=== PATIENT | male | born 1980 | race Hispanic/Latino ===

== ENCOUNTER 2022-07-02 17:22 | Emergency (ER) | payer OTHER ==
[~2022-07-02] VITALS: Ht 172.7 cm; Wt 163.2 kg
[2022-07-02] MEDS ORDERED: TRIDERM0.1 % TD (17:43)
[2022-07-02] MEDS ORDERED: KEFLEX500 MG PO (17:43)
[2022-07-02 17:48] VITALS: BP 128/77
[2022-07-02] MEDS ORDERED: MAXITROL 0.1 %1 SUS OU (17:50)
[2022-07-02 17:57] VITALS: BP 128/77
== END 2022-07-02 18:10 | disposition home or self-care (01) | DRG 605 ==
LOC: ED 17:22
DX: S41.111A Laceration without foreign body of right upper arm, initial encounter (principal); L24.4 Irritant contact dermatitis due to drugs in contact with skin; H10.9 Unspecified conjunctivitis; I10 Essential (primary) hypertension; T49.0X5A Adverse effect of local antifungal, anti-infective and anti-inflammatory drugs, initial encounter; W18.30XA Fall on same level, unspecified, initial encounter

== ENCOUNTER 2022-07-07 10:35 | Emergency (ER) | payer OTHER ==
[~2022-07-07] VITALS: Ht 172.7 cm; Wt 161.0 kg
[~2022-07-07 10:35] MED LIST: KEFLEX500 MG PO; MAXITROL 0.1 %1 SUS OU; TRIDERM0.1 % TD
[2022-07-07] MEDS ORDERED: OFLOXACIN0.3 % OU (11:37)
[2022-07-07] MEDS ORDERED: DOXY-CAPS100 MG PO (11:37)
[2022-07-07] MEDS ORDERED: DEXAMETHASON4 MG PO (11:37)
[2022-07-07] MEDS ORDERED: ALL DAY10 MG PO (11:54)
[2022-07-07 11:56] VITALS: BP 149/99
== END 2022-07-07 12:05 | disposition home or self-care (01) | DRG 916 ==
LOC: ED 10:35
DX: T78.40XA Allergy, unspecified, initial encounter (principal); H10.9 Unspecified conjunctivitis; I10 Essential (primary) hypertension; X58.XXXA Exposure to other specified factors, initial encounter

== ENCOUNTER 2022-07-22 18:17 | Inpatient (IN) | payer OTHER ==
[~2022-07-22] VITALS: Ht 172.7 cm; Wt 164.0 kg
[~2022-07-22 18:17] MED LIST changes: +ALL DAY10 MG PO; +DEXAMETHASON4 MG PO; +DOXY-CAPS100 MG PO; +OFLOXACIN0.3 % OU
--- NOTE | 2022-07-22 19:00 | NUR ---
PT AMBULATED TO ER ROOM 4
[2022-07-22 19:36] LABS: HEMATOCRIT 45.2 % (39.0-50.0); HEMOGLOBIN 14.8 g/dl (14.0-18.0); IMMATURE GRANULOCYTES 0.3 % (0.0-5.0); MEAN CORPUSCULAR HGB 30.8 pG CALC (26.0-32.0); MEAN CORPUSCULAR HGB CONC 32.7 g/dL CAL (32.0-36.0); PLATELET COUNT 300 thou/uL (130-400); RED BLOOD COUNT 4.81 mill/uL (4.70-6.10); RED CELL DISTRI WIDTH 13.3 % (11.5-15.5)
[2022-07-22 19:57] LABS: ALKALINE PHOSPHATASE 57 u/l (38-126); ANION GAP 12 (6-22 (CALC)); BILIRUBIN, TOTAL 1.7 mg/dL (0.2-1.3); BUN 14 mg/dL (9-20); BUN/CREATININE RATIO 22 (12-20 (CALC)); CARBON DIOXIDE 27 mmol/l (22-30); CHLORIDE 103 mmol/l (95-108); CREATININE 0.6 mg/dL (0.7-1.3); GFR FOR AFR.AMER. > 60 ML/MIN (>=60 (CALC)); GFR OTHER RACES > 60 ML/MIN (>=60 (CALC)); POTASSIUM 4.3 mmol/l (3.5-5.1); SGOT/AST 23 u/l (17-59); SODIUM 137 mmol/l (137-146); TOTAL PROTEIN 7.1 g/dL (6.3-8.2)
[2022-07-22 19:59] LABS: BAND 14 % (0-8)
[2022-07-22 20:00] LABS: MANUAL DIFFERENTIAL YES
--- NOTE | 2022-07-22 20:00 | NUR ---
PT SITTING IN AWAITING RESULTS AT THIS TIME. CALL LIGHT WITHIN REACH.
--- NOTE | 2022-07-22 21:04 | NUR ---
PT LAYING IN BED, CC RIGHT LEG PAIN AND REDNESS, PT STATES THAT THIS MORNING HE WOKE UP WITH PAIN AND REDNESS ON THE LOWER PORTION OF HIS RIGHT LEG, MD NOTIFIED CALL LIGHT WITHIN REACH
--- NOTE | 2022-07-22 22:00 | NUR ---
PT SITTING IN AT THIS TIME AWAITING ADMISSION TO MS. CALL LIGHT WITHIN REACH.
--- NOTE | 2022-07-22 23:00 | NUR ---
REPORT GIVEN TO GOMEZ DOW AT THIS TIME.
--- NOTE | 2022-07-22 23:18 | NUR ---
Admission Note Report Given to: GOMEZ DOW Transported by: X Wheelchair Stretcher Transported with: X Nurse Transporter X Patent IV O2 Appliance Sales Associate Location: ICU X [facility]
[2022-07-22 23:24] VITALS: BP 143/86
--- NOTE | 2022-07-23 01:46 | NUR ---
RECEIVED REPORT FROM NURSE DEMETRIUS, PATIENT TRANSPORTED VIA WHEEL CHAIR, PATIENT ARRIVE DTO FLOOR AT 2320, PATIENT ALERT ORIENTED, IV SITED ON LAC G 20 PATENT FLUSHES WELL, DENOIES PAIN AT THIS TIME. ACTIVE BOWEL SOUNDS, CLEAR LUNG SOUNDS EDEMA AND MODERATELY RED ON RT LEG, ADMISSION ASSESSMENT COMLETED, PATIENT ORIENTED TO ROOM AND CALL LIGT SYSTEM, CALL LIGHT IN REACH.
[2022-07-23 03:27] VITALS: BP 134/68
--- NOTE | 2022-07-23 03:56 | NUR ---
PATIENT RESTING IN BED, ASKING ABOUT THE ANTINIOTIC MADE AWARE ABOUT THE TIME OF THE MEDICATION, PATIENT NOT IN DISTRESS CALL LIGHT IN REACH.
[2022-07-23 06:27] VITALS: BP 147/94
--- NOTE | 2022-07-23 08:15 | NUR ---
RECEIVED REPORT FROM NIGHTSHIFT NURSE. PT NOTED LAYING SEMI FOWLERS IN BED SLEEPING AT THIS TIME. NO S/S OF DISTRESS. CALL LIGHT WITHIN REACH AND SAFETY PRECAUTIONS IN PLACE.
[2022-07-23 08:50] LABS: HEMATOCRIT 46.4 % (39.0-50.0); HEMOGLOBIN 15.2 g/dl (14.0-18.0); IMMATURE GRANULOCYTES 0.6 % (0.0-5.0); MEAN CELL VOLUME 95.1 fL CALC (80.0-100.0); MEAN CORPUSCULAR HGB 31.1 pG CALC (26.0-32.0); MEAN CORPUSCULAR HGB CONC 32.8 g/dL CAL (32.0-36.0); PLATELET COUNT 326 thou/uL (130-400); RED BLOOD COUNT 4.88 mill/uL (4.70-6.10); RED CELL DISTRI WIDTH 13.4 % (11.5-15.5)
[2022-07-23 08:53] LABS: MANUAL DIFFERENTIAL YES
[2022-07-23 08:58] LABS: ALBUMIN 4.1 g/dL (3.2-5.0); ALKALINE PHOSPHATASE 83 u/l (38-126); ANION GAP 11 (6-22 (CALC)); BILIRUBIN, TOTAL 1.3 mg/dL (0.2-1.3); BUN 16 mg/dL (9-20); BUN/CREATININE RATIO 26 (12-20 (CALC)); CARBON DIOXIDE 32 mmol/l (22-30); CHLORIDE 101 mmol/l (95-108); CREATININE 0.6 mg/dL (0.7-1.3); GFR FOR AFR.AMER. > 60 ML/MIN (>=60 (CALC)); GFR OTHER RACES > 60 ML/MIN (>=60 (CALC)); POTASSIUM 4.4 mmol/l (3.5-5.1); SGOT/AST 25 u/l (17-59); SODIUM 139 mmol/l (137-146); TOTAL PROTEIN 7.3 g/dL (6.3-8.2)
--- NOTE | 2022-07-23 09:21 | NUR ---
CRITICAL CALLED FROM LAB. WBC 36.6, NOTIFIED ANRP BRANT LEE. NO NEW ORDERS AT THIS TIME.
[2022-07-23 11:33] LABS: BAND 0 % (0-8); PLATELET ESTIMATE NORMAL
--- NOTE | 2022-07-23 12:00 | NUR ---
PT SITTING UP IN BED EATING LUNCH. DENIES ANY PAIN AT THIS TIME. PT EDUCATED BY ON PLAN OF CARE IMPLEMENTED FOR STAY. PT INDICATED UNDERSTANDING. CALL LIGHT WITHIN REACH AND SAFETY PRECAUTIONS IN PLACE.
--- NOTE | 2022-07-23 14:11 | NUR ---
BOOKED AN INFECTIOUS DISEASE CONSULT WITH DR MILLER VIA THE [facility] AT 1300 HRS.
--- NOTE | 2022-07-23 16:00 | NUR ---
PT LAYING IN BED WATCHING TV, ALERT AND ORIENTED X 3. PT HAS NO C/O PAIN AT THIS TIME. NO CHANGE IN PT STATUS. CALL LIGHT WITHIN REACH. WILL CONTINUE TO MONITOR PT.
[2022-07-23 16:28] VITALS: BP 135/73
--- NOTE | 2022-07-23 17:11 | NUR ---
S: DERIK DINH is a 42 M who presents with cellulitis of right leg. He has a history of HTN. All medications in patient's chart were reviewed. O: VS: BP 135/73, P 89, RR 19, T 97.9 W 164 kg, HT 68 in, Scr=0.6, CrCl= 185.8 ml/min A: Blood culture is pending. P: Vancomycin ordered for pharmacy to dose. Start Vancomycin 1500 mg IV Q8H. Vancomycin trough is drawn before the 4th dose on 07/24/22@1330. Vancomycin goal trough is between 10-15 mcg/ml. Pharmacy will follow and or advise on antibiotics use as needed.
--- NOTE | 2022-07-23 20:00 | NUR ---
RECEIVED REPORT FROM NURSE JAMAL, PATIENT RESTING IN BED, TALKING ON THE PHONE, PATIENT ALERT ORIENTED AMBULATORY, IV ON LAC G 20 SALINE LOCK PATENT FLUSHES WELL, PATIENT SLOVAK SPEAKING ONLY, REDNESS NOTED ON RT LEG EDEMA NOTED, SKIN INTACT CALL LIGHT IN REACH.
--- NOTE | 2022-07-23 20:30 | NUR ---
PATIENT TALKING TO INFECTIOUS DSE MD AT THIS TIME.
--- NOTE | 2022-07-23 21:00 | NUR ---
BS 203, RESIDENTIAL TREATMENT SPECIALIST MADE AWARE STARTED ON SLIDING SCLE.
--- NOTE | 2022-07-24 00:55 | NUR ---
VANCOMYCIN STILL INFUSING IV SITE APPEARS HEALTHY, NOT IN DISTRESS CALL LIGHT IN REACH.
[2022-07-24 03:57] VITALS: BP 133/87
--- NOTE | 2022-07-24 04:21 | NUR ---
PATIENT STATED WAS SWEATY, BLOOD GLUCOSE OBTAINED 111, ROOM THERMOSTAT SET TO COOLER TEMP.CALL LIGHT IN REACH.
[2022-07-24 05:30] LABS: URINE BILIRUBIN - DIPSTICK NEGATIVE (NEGATIVE); URINE BLOOD DIPSTICK NEGATIVE (NEGATIVE); URINE CLARITY CLEAR; URINE COLOR YELLOW; URINE GLUCOSE - DIPSTICK NEGATIVE (NEGATIVE); URINE KETONE NEGATIVE (NEGATIVE); URINE LEUK ESTERASE NEGATIVE (Negative); URINE NITRITE - DIPSTICK NEGATIVE (Negative); URINE PH 5.5 (4.5-8.0); URINE PROTEIN - DIPSTICK NEGATIVE (NEG-TRACE); URINE SPECIFIC GRAVITY 1.025
[2022-07-24 05:34] LABS: HEMATOCRIT 44.3 % (39.0-50.0); HEMOGLOBIN 14.3 g/dl (14.0-18.0); MEAN CELL VOLUME 95.5 fL CALC (80.0-100.0); MEAN CORPUSCULAR HGB 30.8 pG CALC (26.0-32.0); MEAN CORPUSCULAR HGB CONC 32.3 g/dL CAL (32.0-36.0); RED BLOOD COUNT 4.64 mill/uL (4.70-6.10); RED CELL DISTRI WIDTH 13.6 % (11.5-15.5)
[2022-07-24 05:56] LABS: ALBUMIN 3.7 g/dL (3.2-5.0); ALKALINE PHOSPHATASE 74 u/l (38-126); ANION GAP 10 (6-22 (CALC)); BUN 22 mg/dL (9-20); BUN/CREATININE RATIO 28 (12-20 (CALC)); CARBON DIOXIDE 30 mmol/l (22-30); CHLORIDE 102 mmol/l (95-108); CREATININE 0.8 mg/dL (0.7-1.3); GFR FOR AFR.AMER. > 60 ML/MIN (>=60 (CALC)); GFR OTHER RACES > 60 ML/MIN (>=60 (CALC)); POTASSIUM 3.9 mmol/l (3.5-5.1); SGOT/AST 24 u/l (17-59); SODIUM 138 mmol/l (137-146); TOTAL PROTEIN 6.8 g/dL (6.3-8.2)
[2022-07-24 06:03] LABS: BILIRUBIN, TOTAL 0.6 mg/dL (0.2-1.3)
--- NOTE | 2022-07-24 07:19 | NUR ---
PT RESTING IN HIGH FOWLERS POSITION.A/OX3 ASSESSMENT COMPLETED. HEART RHYTHM NORMAL. RESPIRATIONS ON ROOM AIR. IV SITE NOTED PT STATED NOTED LEAKING. NIGHT RN NURSE AWARE. POSSIBLE NEED OF REPOSTION OR CHANGE. PT RIGHT LEG NOTED OF REDNESS AND SWOLLEN. ALL SAFETY PRECAUTIONS IN PLACE WITH CALL LIGHT INREACH.
[2022-07-24 10:02] VITALS: BP 154/84
--- NOTE | 2022-07-24 12:54 | NUR ---
PT RESTING IN HIGH FOWLERS POSITION PT DENIES ADDITIONAL NEEDS AT THE TIME.
--- NOTE | 2022-07-24 16:17 | NUR ---
VANCO ABX CURRENTLY INFUSING. TO PROVIDE WITH NEXT ABX.
--- NOTE | 2022-07-24 16:18 | NUR ---
S: DERIK DINH is a 42 M who presents with cellulitis of right leg. O: VS: BP 154/84, P 87, RR 16, T 97.3 Scr=0.8, CrCl= 139.3 ml/min Vancomycin trough 07/24@1330 = 15 A: Blood culture is pending. Vancomycin trough is at upper end of therapeutic range. Decrease in dose warranted. P: Patient is on vancomycin 1500 mg IV q8h. Vancomycin ordered for pharmacy to dose. Decrease Vancomycin to 1250 mg IV Q8H. Vancomycin trough is drawn before the 4th dose on 07/25/22@2130. Vancomycin goal trough is between 10-15 mcg/ml. Pharmacy will follow and or advise on antibiotics use as needed.
[2022-07-24 16:32] VITALS: BP 129/79
[2022-07-24 19:00] VITALS: BP 153/88
--- NOTE | 2022-07-24 19:45 | NUR ---
RECEIVED REPORT FROM DAYSRIFT NURSE. PT IS SITTING UP IN BED. ID MD CALLED TOOK PLACE AND TRANSLATION WAS NEEDED. PT ACKNOWLEGED RECOMENDATIONS FROM ID AND WILL FOLLOW UP. PT IS IN NO PAIN AT THIS TIME. CALL LIGHT WITHIN REACH AND SAFETY PRCAUTIONS TAKEN PLACE.
[2022-07-24 19:55] VITALS: BP 153/88
[2022-07-24 21:43] VITALS: BP 159/85
--- NOTE | 2022-07-25 00:12 | NUR ---
PT IS IN BED SLEEPING. IV MEDS RUNNING. PATIENT SHOWS NO SIGNS OF PAIN. PTS CALL LIGHT WITHHIN REACH AND SAFETY PRECAUTIONS IN PLACE.
[2022-07-25 04:00] VITALS: BP 117/63
--- NOTE | 2022-07-25 04:28 | NUR ---
PT IS IN BED SLEEPING. NO COMPLAINTS OF PAIN. CALL LIGHT WITHIN REACH AND SAFETY PRECAUTIONS IN PLACE.
[2022-07-25 04:30] VITALS: BP 117/63
[2022-07-25 05:51] LABS: BASO% 0.2 % (0-3); EOS% 0.7 % (0-8); HEMATOCRIT 43.1 % (39.0-50.0); HEMOGLOBIN 13.8 g/dl (14.0-18.0); IMMATURE GRANULOCYTES 0.5 % (0.0-5.0); LYMPH% 15.8 % (15-41); MEAN CELL VOLUME 95.6 fL CALC (80.0-100.0); MEAN CORPUSCULAR HGB 30.6 pG CALC (26.0-32.0); MONO% 6.2 % (2-13); NEUT# 13.03 thou/uL (1.82-7.42); NEUT% 76.6 % (42-76); RED BLOOD COUNT 4.51 mill/uL (4.70-6.10); RED CELL DISTRI WIDTH 13.4 % (11.5-15.5)
[2022-07-25 06:02] LABS: ALBUMIN 3.5 g/dL (3.2-5.0); ALKALINE PHOSPHATASE 69 u/l (38-126); ANION GAP 8 (6-22 (CALC)); BILIRUBIN, TOTAL 0.8 mg/dL (0.2-1.3); BUN 19 mg/dL (9-20); BUN/CREATININE RATIO 25 (12-20 (CALC)); CARBON DIOXIDE 30 mmol/l (22-30); CHLORIDE 104 mmol/l (95-108); CREATININE 0.8 mg/dL (0.7-1.3); GFR FOR AFR.AMER. > 60 ML/MIN (>=60 (CALC)); GFR OTHER RACES > 60 ML/MIN (>=60 (CALC)); POTASSIUM 3.7 mmol/l (3.5-5.1); SGOT/AST 22 u/l (17-59); SODIUM 138 mmol/l (137-146); TOTAL PROTEIN 6.4 g/dL (6.3-8.2)
[2022-07-25 07:30] VITALS: BP 145/72
[2022-07-25] MEDS ORDERED: LEVOFLOXACIN500MG PO (08:30)
[2022-07-25] MEDS ORDERED: DOXY-CAPS100 MG PO (08:30)
--- NOTE | 2022-07-25 08:58 | NUR ---
PT RESTING IN HIGH FOWLERS POSITION. A/OX3 DC TODAY PER PROVIDER 1X DOSE LASIX PROVIDED PER EMAR. IV SITE FLUSHED TO RAC. PT STATED WHEN DC EDUCATED PT PROVIDER NEED OF DC ORDERS AND PAPER WORK TO BE SIGNED. PT DENIES ADDITIONAL NEEDS AT THE TIME.
--- NOTE | 2022-07-25 09:48 | NUR ---
Discharge instructions given. Patient verbalizes understanding of same. Discharged in stable condition via Wheelchair to Home with staff. All belongings sent with pt. IV REMOVED NO TELE.
== END 2022-07-25 11:30 | disposition home or self-care (01) | DRG 603 ==
LOC: ED 18:17 → MS2 21:57
PROVIDERS: Emergency Medicine; Internal Medicine; Nurse Practitioner Family; Student in an Organized Health Care Education/Training Program; ADMIT Internal Medicine; ATTEND Internal Medicine
DX: L03.115 Cellulitis of right lower limb (principal); Z68.45 Body mass index [BMI] 70 or greater, adult; I10 Essential (primary) hypertension; E11.9 Type 2 diabetes mellitus without complications; I87.2 Venous insufficiency (chronic) (peripheral); E66.9 Obesity, unspecified; F17.200 Nicotine dependence, unspecified, uncomplicated; T38.3X6A Underdosing of insulin and oral hypoglycemic [antidiabetic] drugs, initial encounter; Z91.128 Patient's intentional underdosing of medication regimen for other reason; Z79.84 Long term (current) use of oral hypoglycemic drugs; Z88.1 Allergy status to other antibiotic agents; Z88.0 Allergy status to penicillin
CPT/HCPCS: J3370; Q3014; Q9967

== ENCOUNTER 2022-07-29 22:03 | Inpatient (IN) | payer OTHER ==
[~2022-07-29] VITALS: Ht 175.3 cm; Wt 159.2 kg
[2022-07-29] VITALS (7 sets, daily range): BP systolic 100–203; BP diastolic 50–179
[~2022-07-29 22:03] MED LIST changes: +LEVOFLOXACIN500MG PO
--- NOTE | 2022-07-29 22:10 | NUR ---
PT TO ER BED 5 FOR TRIAGE AT THIS TIME WITH AN EVEN AND STEADY GAIT.
[2022-07-29] MEDS ORDERED: METFORMIN500 M2 PO (22:22)
[2022-07-29] MEDS ORDERED: ENALAPRIL20 MG PO (22:23)
[2022-07-29 22:58] LABS: BASO% 0.2 % (0-3); EOS% 0.7 % (0-8); HEMATOCRIT 45.2 % (39.0-50.0); HEMOGLOBIN 14.6 g/dl (14.0-18.0); IMMATURE GRANULOCYTES 0.4 % (0.0-5.0); LYMPH% 14.1 % (15-41); MEAN CORPUSCULAR HGB 30.4 pG CALC (26.0-32.0); MEAN CORPUSCULAR HGB CONC 32.3 g/dL CAL (32.0-36.0); MONO% 4.7 % (2-13); NEUT# 17.77 thou/uL (1.82-7.42); NEUT% 79.9 % (42-76); RED BLOOD COUNT 4.81 mill/uL (4.70-6.10); RED CELL DISTRI WIDTH 12.9 % (11.5-15.5)
[2022-07-29 23:10] LABS: ALBUMIN 4.2 g/dL (3.2-5.0); ALKALINE PHOSPHATASE 100 u/l (38-126); ANION GAP 12 (6-22 (CALC)); BILIRUBIN, TOTAL 0.8 mg/dL (0.2-1.3); CARBON DIOXIDE 27 mmol/l (22-30); CHLORIDE 101 mmol/l (95-108); POTASSIUM 4.4 mmol/l (3.5-5.1); SGOT/AST 27 u/l (17-59); SODIUM 135 mmol/l (137-146)
--- NOTE | 2022-07-29 23:12 | NUR ---
PT SITTING IN RM AWAITING RESULTS AT THIS TIME. CALL LIGHT WITHIN REACH AND PT HAS NO NEEDS OR CONCERNS.
[2022-07-29 23:15] LABS: BUN 16 mg/dL (9-20); BUN/CREATININE RATIO 19 (12-20 (CALC)); CREATININE 0.9 mg/dL (0.7-1.3); GFR FOR AFR.AMER. > 60 ML/MIN (>=60 (CALC)); GFR OTHER RACES > 60 ML/MIN (>=60 (CALC))
[2022-07-29 23:18] LABS: TOTAL PROTEIN 8.1 g/dL (6.3-8.2)
[2022-07-30] VITALS (20 sets, daily range): BP systolic 104–152; BP diastolic 53–89
--- NOTE | 2022-07-30 00:15 | NUR ---
PT SITTING IN RM AWAITING RESULTS AT THIS TIME. CALL LIGHT WITHIN REACH. PT HAS NO NEEDS OR CONCERNS AT THIS TIME. VSS.
--- NOTE | 2022-07-30 01:20 | NUR ---
PT SITTING IN RM AWAITING ADMISSION AT THIS TIME. CALL LIGHT WITHIN REACH AND PT HAS NO NEEDS OR CONCERNS AT THIS TIME.
--- NOTE | 2022-07-30 02:20 | NUR ---
PT LAYING IN RM AWAITING ADMISSION AT THIS TIME. CALL LIGHT WITHIN REACH.
--- NOTE | 2022-07-30 02:45 | NUR ---
ATTEMPTED TO CALL REPORT TO ICU AND THE NURSE NOTIFIED ME THAT THEY ARE DOING A TRANSFER AND ARE UNABLE TO TAKE THE PT CURRENTLY. CHARGE NURSE MADE AWARE AND PT UPDATED AT THIS TIME ON POC. CALL LIGHT WITHIN REACH AND PT HAS NO NEEDS OR CONCERNS.
--- NOTE | 2022-07-30 03:45 | NUR ---
PT SITTING IN RM AWAITING ADMISSION AT THIS TIME. CALL LIGHT WITHIN REACH.
--- NOTE | 2022-07-30 04:30 | NUR ---
PT RESTING IN RM AWAITING ADMISSION AT THIS TIME. CALL LIGHT WITHIN REACH AND PT HAS NO NEEDS OR CONCERNS AT THIS TIME.
--- NOTE | 2022-07-30 05:30 | NUR ---
PT SLEEPING IN RM AWAITING ADMISSION AT THIS TIME. CALL LIGHT WITHIN REACH AND PT HAS NO NEEDS OR CONCERNS.
--- NOTE | 2022-07-30 06:00 | NUR ---
Admission Note Report Given to: MEIR DOW Transported by: X Wheelchair Stretcher Transported with: X Nurse Transporter X Patent IV X O2 X Ornamental Iron Worker Location: ICU X [facility]
--- NOTE | 2022-07-30 06:15 | NUR ---
PT ADMITED TO MED SURG FROM ER VIA WHEEL CHAIR PT ALERT AND ORIENTED AND MALAWIAN SPEAKING ONLY, ADMISSION ASSESSMENT INFORMTAION OBTAINED VIA IRIS (REGISTRATION) ACTING SKI TOPPER. LUNGS CLEAR NO SOB NOTED, O2 AT 3L PER ER REPORT PT SATS DROP WHEN SLEEPING, SKIN WARM DRY AND INTACT. RLE REDDENED AND 2-3+ PITTING EDEMA, R PEDAL W/ DOPPLER, LPPP AND STRONG. ENCOURAGED TO KEEP RLE ELEVATED FOR COMFORT, MEDICATED IN ER FOR PAIN, STATES THAT HE CAME IN BECAUSE HE WAS HERE INPATIENT LAST WEEK, AND WAS SENT HOME ON ABT, HE WAS TAKING THEM PRESCRIBED AND FELT THE SITUATION WAS GETTING WORSE NOT BETTER, AND PAIN WAS UNTOLERABLE. PT ORIENTED TO ROOM AND UNIT, CALL SANDOVAL WITHIN REACH, BOTH SIDE RAIS UP PER PT REQUEST, ENCOUAGED TO CALL FOR ANY ASSISTANCE NEEDED. CALL SANDOVAL WITHIN REACH AND PT ABLE TO DEMONSTRATE USAGE W/O INCIDENT. WILL CONTINUE TO MONITOR
--- NOTE | 2022-07-30 06:28 | NUR ---
PT ADMITED TO MED SURG FROM ER VIA WHEEL CHAIR PT ALERT AND ORIENTED AND LIBERIAN SPEAKING ONLY, ADMISSION ASSESSMENT INFORMTAION OBTAINED VIA IRIS (REGISTRATION) ACTING MANAGER OF DRILLING. LUNGS CLEAR NO SOB NOTED, O2 AT 3L PER ER REPORT PT SATS DROP WHEN SLEEPING, SKIN WARM DRY AND INTACT. RLE REDDENED AND 2-3+ PITTING EDEMA, R PEDAL W/ DOPPLER, LPPP AND STRONG. ENCOURAGED TO KEEP RLE ELEVATED FOR COMFORT, MEDICATED IN ER FOR PAIN, STATES THAT HE CAME IN BECAUSE HE WAS HERE INPATIENT LAST WEEK, AND WAS SENT HOME ON ABT, HE WAS TAKING THEM PRESCRIBED AND FELT THE SITUATION WAS GETTING WORSE NOT BETTER, AND PAIN WAS UNTOLERABLE. PT ORIENTED TO ROOM AND UNIT, CALL SANDOVAL WITHIN REACH, BOTH SIDE RAIS UP PER PT REQUEST, ENCOUAGED TO CALL FOR ANY ASSISTANCE NEEDED. CALL SANDOVAL WITHIN REACH AND PT ABLE TO DEMONSTRATE USAGE W/O INCIDENT. WILL CONTINUE TO MONITOR
--- NOTE | 2022-07-30 07:00 | NUR ---
RECEIVE REPORT FROM MEIR DOW.
--- NOTE | 2022-07-30 07:01 | NUR ---
REPORT GIVEN TO ONCOMING NURSE FOR DAY SHIFT HEMA DOW.
--- NOTE | 2022-07-30 08:00 | NUR ---
ALERT AND ORIENTED PATIENT X3. IT IS OBSERVED RESTING IN THE BED. PATIENT CONNECTED TO TELE MONITOR. SINUS RHYTHM AT THE TIME OF THIS NOTE. PATIENT REFERS NO PAIN OR DISCOMFORT AT THIS TIME. THE PATIENT IS EDUCATED AND ORIENTED ABOUT THE NURSING PLAN FOR TODAY AND MEDICATIONS. PATIENT REFERS TO UNDERSTAND. SAFETY AND FALL PRECAUTIONS IN PLACE. CALL LIGHT WITHIN IN REACH.
--- NOTE | 2022-07-30 12:00 | NUR ---
PATIENT STABLE AT THE TIME OF THIS NOTE. IT IS OBSERVED RESTING IN THE BED. PATIENT CONNECTED TO TELE MONITOR. SINUS RHYTHM AT THE TIME OF THIS NOTE. PATIENT REFERS NO PAIN OR DISCOMFORT. THE PATIENT IS EDUCATED AND ORIENTED ABOUT THE NURSING PLAN FOR TODAY AND MEDICATIONS. PATIENT REFERS TO UNDERSTAND.
--- NOTE | 2022-07-30 12:51 | NUR ---
S: DERIK DINH is a 42 M who presents with lower extremity injury and cellulitis of right leg. He has a history of hypertension, diabetes, cellulitis. All medications in patient's chart were reviewed. O: VS: BP 137/67mmHg, P 98BPM, RR 18BPM,T 99.4F W 159.2kg, HT 69in, Scr=0.9mg/dl,CrCl= 160.5ml/min A: Blood culture is pending. P: Patient is on aztreonam 2gm IV Q8H. Vancomycin ordered for pharmacy to dose. Start Vancomycin 1,250mg IV Q8H. Vancomycin trough is drawn before the 4th dose on 07/31/2022 @1030. Vancomycin goal trough is between 10-15 mcg/ml. Pharmacy will follow and or advise on antibiotics use as needed.
--- NOTE | 2022-07-30 16:34 | NUR ---
PATIENT RESTING STABLE AT THIS TIME. SAFETY AND FALL PRECAUTIONS IN PLACE. CALL LIGHT WITHIN IN REACH.
--- NOTE | 2022-07-30 20:06 | NUR ---
BEDSIDE REPORT RECEIVED FROM OFF GOING NURSE. PATIENT AWAKE IN BED. NO CONCERNS VOICED AT THIS TIME. CALL LIGHT WITHIN REACH.
[2022-07-31] VITALS (9 sets, daily range): BP systolic 97–121; BP diastolic 47–80
--- NOTE | 2022-07-31 02:02 | NUR ---
PATIENT RESTING QUIETLY IN BED. MEDICATED FOR PAIN TO RIGHT LOWER EXTREMITY. RLE ELEVATED ON PILLOW. CALL LIGHT WITHIN REACH.
[2022-07-31 05:47] LABS: HEMATOCRIT 41.4 % (39.0-50.0); MEAN CELL VOLUME 96.7 fL CALC (80.0-100.0); MEAN CORPUSCULAR HGB 30.4 pG CALC (26.0-32.0); MEAN CORPUSCULAR HGB CONC 31.4 g/dL CAL (32.0-36.0); RED BLOOD COUNT 4.28 mill/uL (4.70-6.10)
[2022-07-31 05:59] LABS: ALBUMIN 3.6 g/dL (3.2-5.0); ALKALINE PHOSPHATASE 86 u/l (38-126); ANION GAP 10 (6-22 (CALC)); BILIRUBIN, TOTAL 0.7 mg/dL (0.2-1.3); BUN 13 mg/dL (9-20); BUN/CREATININE RATIO 17 (12-20 (CALC)); CARBON DIOXIDE 29 mmol/l (22-30); CHLORIDE 102 mmol/l (95-108); CREATININE 0.8 mg/dL (0.7-1.3); GFR FOR AFR.AMER. > 60 ML/MIN (>=60 (CALC)); GFR OTHER RACES > 60 ML/MIN (>=60 (CALC)); MAGNESIUM 2.3 mg/dL (1.6-2.3); POTASSIUM 4.3 mmol/l (3.5-5.1); SGOT/AST 22 u/l (17-59); SODIUM 136 mmol/l (137-146); TOTAL PROTEIN 7.2 g/dL (6.3-8.2)
--- NOTE | 2022-07-31 06:50 | NUR ---
PATIENT UP TO RESTROOM IN ROOM. WALKS INDEPENDENTLY AND USES WALKER AT TIMES. ASSISTED BACK TO BED. CALL LIGHT WITHIN REACH.
--- NOTE | 2022-07-31 07:40 | NUR ---
RECEIVE REPORT FROM KATHLEEN DOW.
--- NOTE | 2022-07-31 08:00 | NUR ---
ALERT AND ORIENTED PATIENT X3. IT IS OBSERVED RESTING IN THE BED. DAUGHTER AT BED SIDE PATIENT CONNECTED TO TELE MONITOR. SINUS RHYTHM AT THE TIME OF THIS NOTE. PATIENT REFERS NO PAIN OR DISCOMFORT AT THIS TIME. THE PATIENT IS EDUCATED AND ORIENTED ABOUT THE NURSING PLAN FOR TODAY AND MEDICATIONS. PATIENT REFERS TO UNDERSTAND. SAFETY AND FALL PRECAUTIONS IN PLACE. CALL LIGHT WITHIN IN REACH.
--- NOTE | 2022-07-31 13:50 | NUR ---
S: DERIK DINH is a 42 M who presents with lower extremity injury and cellulitis of right leg. He has a history of hypertension, diabetes, cellulitis. All medications in patient's chart were reviewed. O: VS: BP 121/76 mmHg, P 79 beats/min, RR 19 bpm, T 97.8F Wt 159.2kg, HT 69in, Scr=0.8mg/dl,CrCl ~ 181ml/min A:Blood culture is pending. Vanco trough is 12 on 07/31/22. P: Patient is also receiving aztreonam 2gm IV Q8H. Continue Vancomycin 1,250mg IV Q8H. Next vancomycin trough is drawn before the 4th dose on 08/02/2022 @1030. Vancomycin goal trough is between 10-15 mcg/ml. Pharmacy will continue to follow and or advise on antibiotics use as needed.
--- NOTE | 2022-07-31 16:13 | NUR ---
Patient stable resting in bed.
--- NOTE | 2022-07-31 19:27 | NUR ---
BEDSIDE REPORT RECEIVED FROM OFF GOING NURSE. PATIENT IN BED AWAKE. RIGHT LOWER EXTREMITY SWOLLEN AND REDDENED. RLE ELEVATED AT THIS TIME. PATIENT DENIES PAIN OR DISCOMFORT. CALL LIGHT WITHIN REACH.
--- NOTE | 2022-07-31 23:31 | NUR ---
THIS AIR BRAKE MAN RECEIVED A CALL FROM TEMETRY MONITOR THAT PATIENT HEART RATE DROPPING INTO 30S AT TIMES. UPON EBTEREING PATIENT ROOM, HE WAS ALSEEP. PATIENT EASILY AROUSED. AUTOMATIC AND MANUAL PULSE TAKEN AND PATIENT HEART RATE IS 75 AT THIS TIME. WILL CONTINUE TO MONITOR THROUGHOUT THE SHIFT. CALL LIGHT WITHIN REACH.
--- NOTE | 2022-08-01 02:17 | NUR ---
PATIENT EASILYT AROUSED UPON ENTRY TO ROOM. TENDS TO MOVE AROUND FREQUENTLY IN BED, CAUSING TELEMETRY LEADS TO FALL OFF. LEADS REPLACED NEEDED. RESPIRATIONS EVEN AND UNLABORED ON O2 @ 2 LPM VIA NC. CALL LIGHT WITHIN REACH.
[2022-08-01 04:55] VITALS: BP 122/60
[2022-08-01 05:16] LABS: BASO% 0.2 % (0-3); EOS% 1.6 % (0-8); HEMATOCRIT 42.9 % (39.0-50.0); HEMOGLOBIN 13.5 g/dl (14.0-18.0); IMMATURE GRANULOCYTES 0.9 % (0.0-5.0); LYMPH% 11.9 % (15-41); MEAN CELL VOLUME 95.8 fL CALC (80.0-100.0); MEAN CORPUSCULAR HGB 30.1 pG CALC (26.0-32.0); MEAN CORPUSCULAR HGB CONC 31.5 g/dL CAL (32.0-36.0); MONO% 3.8 % (2-13); NEUT# 16.25 thou/uL (1.82-7.42); NEUT% 81.6 % (42-76); RED BLOOD COUNT 4.48 mill/uL (4.70-6.10); RED CELL DISTRI WIDTH 12.7 % (11.5-15.5)
--- NOTE | 2022-08-01 05:21 | NUR ---
PATIENT ASLEEP IN BED AT THIS TIME. PATIENT IS EASILY AROUSED TO TAKE SCHEDULED MDICATION. DENIES PAIN OR DISCOMFORT. RIGHT LOWER EXTREMITY ELEVATED. PATIENT NOTED TO SNORE AND HAS BRIEF APNEIC EPISODES PERIODICALLY. CONTINUES ON O2 @ 2 LPM VIA NASAL CANNULA. CALL LIGHT WITHIN REACH.
[2022-08-01 05:54] LABS: ALBUMIN 3.6 g/dL (3.2-5.0); ALKALINE PHOSPHATASE 88 u/l (38-126); ANION GAP 15 (6-22 (CALC)); BILIRUBIN, TOTAL 0.6 mg/dL (0.2-1.3); BUN 11 mg/dL (9-20); BUN/CREATININE RATIO 16 (12-20 (CALC)); CARBON DIOXIDE 27 mmol/l (22-30); CHLORIDE 101 mmol/l (95-108); CREATININE 0.7 mg/dL (0.7-1.3); GFR FOR AFR.AMER. > 60 ML/MIN (>=60 (CALC)); GFR OTHER RACES > 60 ML/MIN (>=60 (CALC)); MAGNESIUM 2.2 mg/dL (1.6-2.3); POTASSIUM 5.1 mmol/l (3.5-5.1); SGOT/AST 26 u/l (17-59); SODIUM 137 mmol/l (137-146); TOTAL PROTEIN 6.7 g/dL (6.3-8.2)
[2022-08-01 06:32] VITALS: BP 122/50
--- NOTE | 2022-08-01 07:50 | NUR ---
PERFORMED BEDSIDE REPORT WITH NIGHTSHIFT NURSE. PT NOTED LAYING IN BED SUPINE WITH NASAL CANNULA IN PLACE. PT RESTING COMFORTABLY AT THIS TIME, RT LEG ELEVATED ON PILLOWS. REDNESS NOTED IN RT LEG, OUTLINED INFECTED AREA FOR MARKING. PT IS CANADIAN SPEAKING ONLY, DENIES ANY PAIN AT THIS TIME. PT DOES HAVE TELE MONITOR IN PLACE. CALL LIGHT WITHIN REACH AND SAFETY PRECAUTIONS IN PLACE.
[2022-08-01 10:15] VITALS: BP 109/66
--- NOTE | 2022-08-01 12:30 | NUR ---
PT IS SITTING UP IN CHAIR, EATING LUNCH. PT IS A/OX3 DENIES ANY PAIN AT THIS TIME. LEG IS ELEVATED IN CHAIR. CALL LIGHT WITHIN REACH AND SAFETY PRECAUTIONS IN PLACE.
[2022-08-01 15:00] VITALS: BP 120/62
--- NOTE | 2022-08-01 17:13 | NUR ---
PT RECEIVED A SHOWER. LAYING IN BED ON THE PHONE AT THIS TIME. NO S/S OF DISTRESS. CALL LIGHT WITHIN REACH AND SAFETY PRECAUTIONS IN PLACE.
[2022-08-01 19:08] VITALS: BP 113/59
--- NOTE | 2022-08-01 19:18 | NUR ---
BEDSIDE REPORT RECEIVED FROM OFF GOING NURSE. PATIENT RESTING IN BED. RESPIRATIONS EVENAD UNLAORED ON ROOM AIR. DENIES PAIN OR DISCOMFORT AT THIS TIME. SAFETY MEASURES INPLACE. CALL LIGHT WITHIN REACH.
--- NOTE | 2022-08-01 22:54 | NUR ---
THIS OCCUPATIONAL THERAPIST ASSISTANT ALERTED TAHT PATIENT HEART RATE IS IN THE 30s. UPON ENTERING PATIENT ROOM, HE IS NOTED TO BE APNEIC BUT EASILY AROUSED AND RESPIRATIONS RESUME. HEART RATE RETURNS TO 70s. PATIENT STATED TAHT HE IS "OK". DENIES PAIN OR DISCOMFORT. O2 @ 2 LPM APPLIED. SAFETY MEASURES MAINTAINED. CALL LIGHT WITHIN REACH.
[2022-08-01 23:27] VITALS: BP 142/62
[2022-08-02] VITALS (8 sets, daily range): BP systolic 99–128; BP diastolic 48–86
--- NOTE | 2022-08-02 04:32 | NUR ---
CALL PLACED TO DR. STINSON REGARDING DROPS IN HEART RATE TO THE 30s AND ONCE IN THE 20s. PATIENT ABLE TO BE AROUSED AND HEART RATE RECOVERS QUICKLY ONCE STIMULATED. PATIENT CURRENTLY ASLEEP IN BED AT THIS TIME. AWAITING CALL BACK FROM
[2022-08-02 05:39] LABS: BASO% 0.2 % (0-3); EOS% 1.9 % (0-8); HEMATOCRIT 40.4 % (39.0-50.0); HEMOGLOBIN 13.1 g/dl (14.0-18.0); IMMATURE GRANULOCYTES 0.3 % (0.0-5.0); MEAN CELL VOLUME 94.6 fL CALC (80.0-100.0); MEAN CORPUSCULAR HGB 30.7 pG CALC (26.0-32.0); MEAN CORPUSCULAR HGB CONC 32.4 g/dL CAL (32.0-36.0); NEUT# 12.68 thou/uL (1.82-7.42); NEUT% 79.6 % (42-76); RED BLOOD COUNT 4.27 mill/uL (4.70-6.10); RED CELL DISTRI WIDTH 12.5 % (11.5-15.5)
--- NOTE | 2022-08-02 05:39 | NUR ---
THIS MANAGEMENT TRAINER SPOKE WITH DR. STINSON REGARDING PATIENT'S DROP IN HEART RATE. NO NEW ORDERS RECEIVED AT THIS TIME. CONTINUES ON TELEMETRY AND HEART CURRENTLY IN THE 70s. WILL CONTINUE TO MONITOR THROUGHOUT SHIFT.
[2022-08-02 05:55] LABS: ALBUMIN 3.5 g/dL (3.2-5.0); ALKALINE PHOSPHATASE 82 u/l (38-126); BILIRUBIN, TOTAL 0.5 mg/dL (0.2-1.3); BUN 10 mg/dL (9-20); BUN/CREATININE RATIO 13 (12-20 (CALC)); CARBON DIOXIDE 29 mmol/l (22-30); CHLORIDE 104 mmol/l (95-108); CREATININE 0.8 mg/dL (0.7-1.3); GFR FOR AFR.AMER. > 60 ML/MIN (>=60 (CALC)); GFR OTHER RACES > 60 ML/MIN (>=60 (CALC)); MAGNESIUM 2.2 mg/dL (1.6-2.3); SGOT/AST 25 u/l (17-59); SODIUM 138 mmol/l (137-146); TOTAL PROTEIN 7.1 g/dL (6.3-8.2)
[2022-08-02 05:57] LABS: ANION GAP 9 (6-22 (CALC)); POTASSIUM 3.9 mmol/l (3.5-5.1)
--- NOTE | 2022-08-02 07:29 | NUR ---
PT RESTING IN BED. ALL SAFETY MEASURES IN PLACE. VSS. NO NEEDS AT THIS TIME.
--- NOTE | 2022-08-02 11:41 | NUR ---
VANCOMYCIN TROUGH IS 13 TODAY WE WILL CONTINUE VANCOMYCIN 1.25GRAMS Q8H. NEXT TROUGH WILL BE 08/04/22 @1030
--- NOTE | 2022-08-02 12:00 | NUR ---
PT RESTING COMFORTABLY. VSS. NO NEEDS AT THIS TIME.
--- NOTE | 2022-08-02 17:01 | NUR ---
PT RESTING COMFORTABLY. VSS. NO NEEDS AT THIS TIME.
--- NOTE | 2022-08-02 20:20 | NUR ---
RECEIVED REPORT FROM DAYSHIFT NURSE. PT IS LAYING IN BED IN SEMIFOWLERS POSITION. PT IS COMPLAINING OF BEING ITCHY DO TO RASH CAUSED FROM DAYSHIFT MEDICATION. CALL LIGHT WITHIN REACH AND SAFETY PRECATIONS IN PLACE.
[2022-08-03] VITALS: BP 116/86
--- NOTE | 2022-08-03 00:15 | NUR ---
PT IS SITTING UP ON SIDE OF BED GETTING READY TO USE THE RESTROOM. PT COMPLAINS OF IV FLUIDS. ADVISED PT OF TAKING PUMP TO RESTROOM. PT ACKNOWLEGED. PT DENIES OF PAIN. PT CALL LIGHT WITHIN REACH AND SAFETY PRECAUTIONS IN PLACE.
[2022-08-03 03:58] VITALS: BP 119/75
[2022-08-03 04:00] VITALS: BP 119/75
--- NOTE | 2022-08-03 04:38 | NUR ---
PT IS IN BED SLEEPING COMFORTABLY. TELE SHOWS HEART RATE GOING DOWN TO THE 30S PT IS AWAKEN. ADVISED PT OF DECREASED HEART RATE. CALL LIGHT WITHIN REACH AND SAFETY PRECAUTIONS IN PLACE.
--- NOTE | 2022-08-03 08:00 | NUR ---
GOT REPORT FROM INDUSTRIAL TECHNOLOGY EDUCATION TEACHER NURSE. PATIENT ASSESSED, AOX4, PATIENT DENIES ANY DISTRESS BESIDE THAT HIS RASH IS GETTING VERY ITCHY AND STATES THAT THE CREAM DOES NOT HELP HIM. IV IS PATENT. CALL LIGHT WITH IN REACH. ADVISED TO CALL IF NEEDING ANYTHING. PATIENT VERBALIZED UNDERSTANDING.
[2022-08-03 10:24] VITALS: BP 127/70
--- NOTE | 2022-08-03 12:00 | NUR ---
PATIENT IS LAYING IN BED. NO COMPLAINTS AT THIS TIME. ADVISED TO CALL IF NEEDING ANYTHING.
--- NOTE | 2022-08-03 16:00 | NUR ---
PATIENT IS LAYING IN BED. NO COMPLAINTS AT THIS TIME. ADVISED TO CALL IF NEEDING ANYTHING.
[2022-08-03 16:05] VITALS: BP 128/67
--- NOTE | 2022-08-03 19:35 | NUR ---
PT RESTING IN BED, PT ALERT AND ORIENTED X3, NO SIGNS OF DISTRESS NOTED, RESP EVEN AND UNLABORED. PT ON 02 2L NC, PT HAS SLEEP APNEA BUT HAS NOT DONE SLEEP STUDY. NOTED PT RASH TO CHEST AND ABDOMEN HAS DECREASED BUT WHEN PT'S BACK WAS EXAMINED NOTED RASH COVERS ALL OF PT'S UPPER BACK. NOTED RASH TO EXTREMITIES. MD AWARE, PT DENIES ANY ITCHING AT THIS TIME. STATES THERE WAS SOME RELIEF FROM THE STEROID GIVEN EARLIER IN THE DAY. RASH IS BLANCHABLE, AND IS NOT RAISED. DISCUSSED POC WITH PT.DISCUSSSED IV VANCO INFUSION AND TO NOTIFY MINE PRODUCTION ENGINEER IF ITCHING REOCCURS, PT VERBALIZED UNDERSTANDING. AND IV VANCO INITIATED, EDEMA TO RLE HAS DECREASED, RLE REMAINS ELEVATED ON PILLOWS. PEDAL PULSE STRONG BILAT, PT DENIES ANY PAIN AT THIS TIME. ASSESSMENT COMPLETED, CALL LIGHT IN REACH,CONTINUE TO MONITOR.
[2022-08-03 20:19] VITALS: BP 128/78
[2022-08-04] VITALS (7 sets, daily range): BP systolic 112–147; BP diastolic 61–88
--- NOTE | 2022-08-04 | NUR ---
PT RESTING IN BED WITH EYES CLOSED, NO SIGNS OF DISTRESS NOTED, RESP EVEN AND UNLABORED. CALL LIGHT IN REACH, CONTINUE TO MONITOR.
--- NOTE | 2022-08-04 02:30 | NUR ---
PT RESTING IN BED, DISCUSSED IV AZACTAM, NOTED PT WAS ITCHING HIS NECK, PT ASKED WHEN HE WAS GOING TO RECEIVE ANOTHER "ALLERGY" PILL. PT CONCERNED ABOUT RASH, MD CALLED AND NOTIFIED, ORDERS RECEIVED FOR BENADRYL, CALL LIGHT IN REACH,CONTINUE TO MONITOR.
--- NOTE | 2022-08-04 04:00 | NUR ---
PT RESTING IN BED, NO SIGNS OF DISTRESS NOTED, RESP EVEN AND UNLABORED. CALL LIGHT IN REACH,CONTINUE TO MONITOR.
[2022-08-04 05:56] LABS: BASO% 0.1 % (0-3); EOS% 0.6 % (0-8); HEMATOCRIT 45.2 % (39.0-50.0); HEMOGLOBIN 14.5 g/dl (14.0-18.0); IMMATURE GRANULOCYTES 0.3 % (0.0-5.0); LYMPH% 10.6 % (15-41); MEAN CELL VOLUME 94.2 fL CALC (80.0-100.0); MEAN CORPUSCULAR HGB 30.2 pG CALC (26.0-32.0); MEAN CORPUSCULAR HGB CONC 32.1 g/dL CAL (32.0-36.0); MONO% 3.5 % (2-13); NEUT# 18.01 thou/uL (1.82-7.42); NEUT% 84.9 % (42-76); RED BLOOD COUNT 4.8 mill/uL (4.70-6.10); RED CELL DISTRI WIDTH 12.1 % (11.5-15.5)
--- NOTE | 2022-08-04 08:00 | NUR ---
PT RESTING IN BED BREATHING EVEN AND UNLABORED. ASSESSMENT ALLOWED. TELE MONITOR IN PLACE, CONTINOUS MONITORING PER ED. EDUCATED PT IN CURRENT PLAN OF CARE. PT INDICATED UNDERSTANDING. FALL/SAFTEY PRECAUTION IN PLACE. CALL LIGHT WITHIN REACH.
--- NOTE | 2022-08-04 11:04 | NUR ---
S: DERIK DINH is a 42 M who presents with cellulitis. He has a history of hypertension and diabetes. All medications in patient's chart were reviewed. O: VS: BP 114/67mmHg, P 92bpm, RR 22bpm,T 98.3F W 159.2kg, HT 69inches, Scr= 0.8 mg/dL ,CrCl= 180.5 ml/min A: Blood culture shows no growth. P: Patient is on Azactam 2g IV Q8H. Vancomycin ordered for pharmacy to dose. trough is 14 on 08/04/22 Continue Vancomycin 1250mg IV Q8H. Vancomycin trough is drawn before the 4th dose on 08/06 @1100. Vancomycin goal trough is between 10-15 mcg/ml. Pharmacy will follow and or advise on antibiotics use as needed.
--- NOTE | 2022-08-04 12:00 | NUR ---
PT EATING LUNCH. NO DISTRESS NOTED. STATES NO NEEEDS AT THIS TIME. FALL/SAFTEY PRECAUTION IN PLACE. CALL LIGHT WITHIN REACH.
--- NOTE | 2022-08-04 12:27 | NUR ---
Offered ambulation and/or getting onto chair. Pt refused. Pt stated he just moved from chair to bed.
--- NOTE | 2022-08-04 16:10 | NUR ---
PT RESTING ROOM. STATES ROOM IS "TOO HOT" OFFERED DIFFERENT ROOM PLACEMENT. PT DENIED. FANS IN ROOM FOR COOL DOWN. FALL/SAFTEY PRECAUTION IN PLACE. CALL LIGHT WITHIN REACH.
--- NOTE | 2022-08-04 20:10 | NUR ---
RECEIVED REPORT FROM VICTOR M ANAND. PT SITTING ON RECLINER WATCHING TV; A&O X3. EVEN AND UNLABORED RESPIRATIONS; CLEAR LUNG SOUNDS. TELEMETRY IN PLACE. IV SITE HEALTHY AND PATENT. ACTIVE BOWEL SOUNDS X 4 UADRANTS. REDNESS NOTED TO LT LEG. NOTED RASH COVERS PT'S BACK, CHEST, ADDOMEN, AND EXTREMITIES; MD AWARE. RT LOWER EXTREMITY REMAINS ELEVATED ON PILLOWS. PT DENIES PAIN AT THE MOMENT. SAFETY PRECAUTIONS IN PLACE WITH CALL LIGHT N REACH.
--- NOTE | 2022-08-05 | NUR ---
PT RESTING ON BED WITH EYES CLOSED. NO DISTRESS OR PAIN NOTED. O2 @ 2L VIA NASAL CANNULA IN PLACE. IV INFUSING FLUIDS PER ORDER. SAFETY PRECAUTIONS IN PLACE WITH CALL LIGHT IN REACH.
[2022-08-05 00:27] VITALS: BP 122/76
[2022-08-05 03:55] VITALS: BP 130/59
--- NOTE | 2022-08-05 04:05 | NUR ---
PT RESTING ON BED WITH EYES CLOSED. NO DISTRESS OR PAIN NOTED. IV HEALTHY AND PATENT INFUSING FLUIDS PER ORDER. VS COMPLETED. NO VOICED NEEDS AT THIS TIME. SAFETY PRECAUTIONS IN PLACE WITH CALL LIGHT IN REACH.
[2022-08-05 06:27] LABS: BASO% 0.2 % (0-3); EOS% 1.2 % (0-8); HEMATOCRIT 44.6 % (39.0-50.0); HEMOGLOBIN 14.5 g/dl (14.0-18.0); IMMATURE GRANULOCYTES 0.3 % (0.0-5.0); LYMPH% 11.1 % (15-41); MEAN CELL VOLUME 94.5 fL CALC (80.0-100.0); MEAN CORPUSCULAR HGB 30.7 pG CALC (26.0-32.0); MEAN CORPUSCULAR HGB CONC 32.5 g/dL CAL (32.0-36.0); MONO% 2.7 % (2-13); NEUT# 15.1 thou/uL (1.82-7.42); NEUT% 84.5 % (42-76); RED BLOOD COUNT 4.72 mill/uL (4.70-6.10); RED CELL DISTRI WIDTH 12.3 % (11.5-15.5)
[2022-08-05 06:42] LABS: ALBUMIN 3.7 g/dL (3.2-5.0); ALKALINE PHOSPHATASE 79 u/l (38-126); ANION GAP 10 (6-22 (CALC)); BILIRUBIN, TOTAL 0.3 mg/dL (0.2-1.3); BUN 15 mg/dL (9-20); BUN/CREATININE RATIO 19 (12-20 (CALC)); CARBON DIOXIDE 28 mmol/l (22-30); CHLORIDE 105 mmol/l (95-108); CREATININE 0.8 mg/dL (0.7-1.3); GFR FOR AFR.AMER. > 60 ML/MIN (>=60 (CALC)); GFR OTHER RACES > 60 ML/MIN (>=60 (CALC)); POTASSIUM 4.3 mmol/l (3.5-5.1); SGOT/AST 40 u/l (17-59); SODIUM 139 mmol/l (137-146); TOTAL PROTEIN 7.5 g/dL (6.3-8.2)
[2022-08-05 06:51] VITALS: BP 141/91
[2022-08-05 07:06] VITALS: BP 141/91
--- NOTE | 2022-08-05 08:00 | NUR ---
PT RESTING IN BED UPON ENTERING ROOM, ASSESSMENT COMPLETED. TELE MONITOR IN PLACE. CONTINOUS MONITORING PER ED. BREATHING EVEN AND UNLABORED. UPDATED PT IN CURRENT PLAN OF CARE. PT INIDCATED UNDERSTANDING. FALL/SAFTEY PRECAUTIO CHAPIN PLACE. CALL LIGHT WITHIN REACH
--- NOTE | 2022-08-05 08:25 | NUR ---
Offered pt to get out of bed. Pt refused. Told pt I would be in later to ask again. Pt agreed. Nurse notified.
[2022-08-05 10:33] VITALS: BP 137/69
--- NOTE | 2022-08-05 12:00 | NUR ---
PT EATING LUNCH STATES NO NEEDS AT THIS TIME. NO DISTRESS NOTED. FALL/SAFTEY PRECAUTION IN PLACE. CALL LIGHT WITHIN REACH.
[2022-08-05 15:01] VITALS: BP 129/62
--- NOTE | 2022-08-05 17:28 | NUR ---
PT RESTING WATCHING VIDEOS ON PHONE. BREATHIN GEVEN AND UNLABORED. STATES NO PAIN. STATES NO NEEDS AT THIS TIME. FALL/SAFTEY PRECAUTIONIN PLACE. CALL LIGHT WITHN REACH
--- NOTE | 2022-08-05 17:48 | NUR ---
OFFERED PT TO GET OF BED OR REPOSITION. PT REFUSED. HE STATED HE WAS IN THE CHAIR EARLIER. SAFETY PRECAUTIONS IN PLACE.
--- NOTE | 2022-08-05 18:12 | NUR ---
patient voided x3 today.
[2022-08-05] MEDS ORDERED: ZYVOX600 MG PO (18:22)
[2022-08-05] MEDS ORDERED: MEDDOSEPAK PO (18:22)
--- NOTE | 2022-08-05 19:33 | NUR ---
BEDSIDE REPORT RECEIVED FROM [facility] GOING NURSE. PATIENT AWAKE AND ALERT. PATIENT WALKED TO ER PARKING LOT WITH DENTAL TECHNICIAN APPRENTICE ACCOMPANYING TO DISCHARGE HOME AT 1928. NO CONCERNS VOICED AT TIME OF DISCHARGE.
== END 2022-08-05 19:29 | disposition home or self-care (01) | DRG 603 ==
LOC: ED 22:03 → ED-I 07-30 01:00 → ED 07-30 01:27 → ICU 07-30 01:28 → MS2 07-30 04:00
PROVIDERS: Emergency Medicine; Nurse Practitioner Family; ADMIT Internal Medicine; ATTEND Internal Medicine
DX: L03.115 Cellulitis of right lower limb (principal); I10 Essential (primary) hypertension; E11.9 Type 2 diabetes mellitus without complications; R09.02 Hypoxemia; E66.01 Morbid (severe) obesity due to excess calories; G47.30 Sleep apnea, unspecified; L27.1 Localized skin eruption due to drugs and medicaments taken internally; T36.8X5A Adverse effect of other systemic antibiotics, initial encounter; Z79.84 Long term (current) use of oral hypoglycemic drugs; Z88.1 Allergy status to other antibiotic agents; Z88.0 Allergy status to penicillin
CPT/HCPCS: J1650; J3370; S0073; S0077